=== PATIENT | male | born 1995 | race Caucasian/White ===

== ENCOUNTER 2023-01-15 13:13 | Emergency (ER) | payer MEDICAID ==
[~2023-01-15] VITALS: Ht 167.6 cm; Wt 82.0 kg
[2023-01-15] MEDS ORDERED: SODIUM CHLORIDE 0.9% 1,000 ML IV ONE (13:30)
[2023-01-15 14:08] LABS: BASOPHILS % 0.5 % (0.0-2.0); HEMOGLOBIN. 16.1 g/dL (14.0-18.0); LYMPHOCYTES % 17.3 % (20.0-50.0); MEAN CORPUSCULAR HEMOGLOBIN 29.5 pg (28.0-32.0); MEAN CORPUSCULAR VOLUME 86.2 fL (80.0-94.0); MEAN PLATELET VOLUME 9.7 fl (7.4-10.4); MONOCYTES % 10.7 % (2.0-8.0); NEUTROPHILS % 71.5 % (40.0-76.0); PLATELET 252 x1000/uL (130-400); RED BLOOD CELL COUNT 5.45 mill/uL (4.7-6.1)
[2023-01-15 14:15] LABS: CHLORIDE 109 mEq/L (98-107)
[2023-01-15 14:39] LABS: ETHANOL BLOOD < 10 mg/dL (-10)
[2023-01-15 15:28] VITALS: BP 129/97; PULSE 98; RESP 18; TEMP 98.6
== END 2023-01-15 15:46 | disposition home or self-care (01) ==
LOC: ER 13:13
DX: R06.02 Shortness of breath (principal); F15.10 Other stimulant abuse, uncomplicated
CPT/HCPCS: 80053; 80320; 83880; 84443; 85025; 84484; 36415; 71045; 93005; 96360; 99285; J7030; Z7610 ×2; G0480